=== PATIENT | female | born 1990 | race Caucasian/White ===

== ENCOUNTER 2020-06-06 19:54 | Emergency (ER) | payer MEDICAID, SELFPAY ==
[2020-06-06 20:40] VITALS: BP 165/94; PULSE 104; RESP 18; TEMP 36.6; O2SAT 99; BMI 37.5
--- NOTE | 2020-06-06 21:17 | ED_ITS ---
HPI - General Adult General Chief complaint: General Medical Stated complaint: wants rapid test Time Seen by Provider: 06/06/20 21:00 Source: patient Mode of arrival: ambulatory Limitations: no limitations History of Present Illness HPI narrative: 29-year-old female who presents the emergency department for evaluation for COVID exposure. The patient states that she has a premature child who was born at 31 weeks and has been in the NICU at [facility] for 1 month. The patient states that 10 days prior, she was exposed to a friend who now may have COVID like symptoms (loss of sense of taste and smell) that developed approximately 4 days ago. The patient has been asymptomatic however she wants to be tested for COVID-19 given her close exposure in given the fact that she does not want to spread COVID-19 to the MICU. Related Data Allergies Allergy/AdvReac Type Severity Reaction Status Date / Time No Known Allergies Allergy Unknown UNKNOWN Verified 06/06/20 20:51 [NO KNOWN ALLERGIES] seasonal allergies Allergy Unknown Cough Uncoded 06/06/20 20:51 Review of Systems Review of Systems: Yes all other systems are reviewed and are negative Neurologic: Reports Abnormal speech present [facility] Past Medical History [facility] Narrative: The patient has a history of asthma, she denies tobacco and alcohol use, she denies drug use. Medical History (Updated 06/06/20 @ 21:27 by Manuel Valera MD) Cellulitis Social History Social History Use of substances other than those prescribed or required for medical reasons: No Advance Directives: No Advance Directives Information Provided: Yes Physical Exam Vital Signs: Vital Signs: Last Vital Signs Temp 97.8 F 06/06/20 20:40 Pulse 104 H 06/06/20 20:40 Resp 18 06/06/20 20:40 BP 165/94 H 06/06/20 20:40 Pulse Ox 99 06/06/20 20:40 Body Mass Index 37.5 Const: General: cooperative and healthy appearing Nutritional Appearance: overweight Orientation/consciousness: oriented to person and oriented to place Limitations: no limitations HENMT: Head: Yes normal to inspection Ears: hearing grossly normal bilaterally General nose exam: Normal external nose present Face and sinus: Yes normal facial exam Mouth: Normal oral and palatal mucosa present Eyes: General: appearance normal, both eyes and all related structures Neck: Neck: Yes normal visual inspection Chest: Chest palpation & inspection: normal inspection of the chest Resp: Effort & Inspection: normal respiratory effort and able to speak in complete sentences Auscultation: clear to auscultation bilaterally Neuro: General: oriented to person and oriented to place Cognition (Neuro): normal cognition Speech: Abnormal speech present Gait exam (Neuro): Normal gait present Extrem: General: Yes normal to inspection Psych: Appearance: grossly normal and well kempt Mental Status: mental status grossly normal Affect: normal affect Attitude: cooperative Thought process: Normal thought process present Thought content: Normal thought content present Insight: Good insight present (Psych) Judgement: Good judgement present (Psych) Discharge Plan Discharge Clinical Impression: Close exposure to 2019 novel coronavirus Patient Disposition: Home, Self-Care Additional Instructions: Based on your symptoms and history, you were tested forCOVID-19. Your RESULT IS PENDING at this time. I will call you to night with the results. You will be contacted with either a NEGATIVE OR POSITIVE results. Please wait until we contact you for your results. Based on your evaluation today, it is okay to send you home. Please plan for self quarantine for up to 14 days. Do not expose yourself to others. You may not go to work. If testing does come back negative you may return to activities as long as you are no longer having any symptoms for at least 3 days. Please continue to wear a mask, follow cold instructions and wash your hands frequently. You may take Tylenol 325 mg pills, 2 pills every 4 hours as needed for pain or fever. You may also take ibuprofen(Motrin/Advil) 200 mg pills, 3 pills every 6 hours as needed for pain or fever. Patient seen in the emergency department should be excused from work until negative test results AND until 72 hours without any symptoms have gone away completely OR at least 10 days have passed since symptoms first appeared or since last exposure to COVID-19 positive patient CDC Guidelines for home isolation: - Stay away from others - WEAR A MASK if you are sick AND STAY HOME - Cover your mouth and nose with a tissue when you cough or sneeze. Dispose of tissues in a lined trash can and wash your hands immediately with soap and water for at least 20 seconds. If soap and water are not available, clean hands with alcohol-based hand workers compensation examiner that contains at least 60% alcohol. - Clean your hands often with soap and water for at least 20 seconds - Avoid touching your eyes, nose and mouth with unwashed hands - Do not share dishes, drinking glasses, cups, eating utensils, towels, or bedding with other people in your home. After using these items, wash them thoroughly with soap and water or put in the interactive digital media specialist. - Clean high-touch surfaces in your isolation area ( sick room and bathroom) every day; let a caregiver clean and disinfect high-touch surfaces in other areas of the home. Clean the area or item with soap and water or another detergent if it is dirty. Then, use a household disinfectant. - Limit contact with pets and animals: If you must care for a pet, wash your hands before and after interacting with them).
[2020-06-06 21:46] LABS: COVID-19 Test Negative (Negative)
== END 2020-06-06 21:38 | disposition home or self-care (01) ==
PROVIDERS: Emergency Provider Emergency Medicine Emergency Medical Services; PCP Internal Medicine
DX: Z20.822 Contact with and (suspected) exposure to COVID-19 (principal)
CPT/HCPCS: 36415; 87635; 99283; 99284

== ENCOUNTER 2020-10-29 17:46 | Emergency (ER) | payer MEDICAID, SELFPAY ==
[2020-10-29 18:41] VITALS: BP 148/86; PULSE 94; RESP 16; TEMP 36.4; O2SAT 99; BMI 45.4
[2020-10-29 19:40] LABS: IDNOW Serial# 9DD0AD1C
[2020-10-29 19:41] LABS: COVID-19 Test Positive (Negative)
--- NOTE | 2020-10-29 20:07 | ED.GENADULT ---
HPI - General Adult General Chief complaint: Headache Stated complaint: covid symptoms Time Seen by Provider: 10/29/20 20:07 History of Present Illness HPI narrative: Patient complains of mild headache body aches fatigue cough for 2-3 days, she did have a close COVID exposure with her parent and is concerned she has COVID No shortness of breath no nausea or vomiting Related Data Allergies Allergy/AdvReac Type Severity Reaction Status Date / Time No Known Allergies Allergy Unknown UNKNOWN Verified 06/06/20 20:51 [NO KNOWN ALLERGIES] seasonal allergies Allergy Unknown Cough Uncoded 06/06/20 20:51 Review of Systems Review of Systems: Positive for cough body aches fatigue and headache Negatives are no fever no chills no dizziness no weakness no fainting no feeling faint no stiff neck no sore throat no ear pain no shortness of breath no abdominal pain no nausea no vomiting no diarrhea no skin rash Yes all other systems are reviewed and are negative [facility] Past Medical History Source: nursing notes reviewed Medical History (Updated 10/29/20 @ 20:12 by POONAM Meyer) Asthma Cellulitis Social History Social History Alcohol intake: never Smoked in Last 30 Days: No Use of substances other than those prescribed or required for medical reasons: No Any prior treatment program specific to substance use: No Advance Directives: No Advance Directives Information Provided: No Patient : No Physical Exam Vital Signs: Vital Signs: Last Vital Signs Temp 97.6 F 10/29/20 18:41 Pulse 94 10/29/20 18:41 Resp 16 10/29/20 18:41 BP 148/86 H 10/29/20 18:41 Pulse Ox 99 10/29/20 18:41 Body Mass Index 45.4 General appearance is comfortable, no acute distress The eyes no discharge no redness The neck is supple The chest is clear to auscultation bilateral Heart no murmur Abdomen soft nontender Extremities full range of motion x4, no edema no calf tenderness Skin no rash Course Course Course Narrative: COVID test was positive, patient is well-appearing with no shortness of breath, vital signs are stable and she is advised to wear mask, keep a distance from people and return any time if worse Medical Decision Making Lab Data Labs: Lab Results 10/29/20 Range/Units 19:15 COVID-19 ([facility]) Positive A (Negative) COVID-19 Clin Com See Note Discharge Plan Discharge Clinical Impression: COVID-19 Patient Disposition: Home, Self-Care Additional Instructions: COVID test was positive You look well at this time, but if you develop difficulty breathing or any worse condition any time return to the ER Use Tylenol or Motrin for aches and pains Best plan is isolated as best possible for at least 10 days and at least several days after all symptoms are gone It is a good plan to get a repeat COVID test when you are feeling better to confirm the disease has resolved
== END 2020-10-29 20:25 | disposition home or self-care (01) ==
PROVIDERS: Emergency Provider Emergency Medicine; PCP Internal Medicine
DX: U07.1 COVID-19 (principal); J45.909 Unspecified asthma, uncomplicated
CPT/HCPCS: 36415; 87635; 99283; 99284

== ENCOUNTER 2021-10-17 09:08 | Emergency (ER) | payer MEDICAID, SELFPAY ==
--- NOTE | ~2021-10-17 | US_ITS ---
EXAMINATION: RIGHT LOWER EXTREMITY DEEP VENOUS ULTRASOUND CLINICAL INFORMATION: Swollen and painful calf. COMPARISON: Bilateral lower extremity DVT study 03/28/2019 TECHNIQUE: Duplex Doppler imaging with compression maneuvers were performed of the right lower extremity deep venous system. FINDINGS: The visualized common femoral, femoral and popliteal veins demonstrate normal compressibility and color flow without evidence of venous thrombosis. Visualized portions of the calf veins demonstrate normal color fill-in suggesting patency. There is no evidence of a Ho's cyst. US/US venous duplex LE RT IMPRESSION: No evidence of deep venous thrombosis involving the right lower extremity.
--- NOTE | ~2021-10-17 | XR_ITS ---
EXAMINATION: XR KNEE, RIGHT CLINICAL INFORMATION: Knee pain COMPARISON: None TECHNIQUE: Four views of the right knee. FINDINGS: No acute fracture or subluxation. Compartmental joint spaces are maintained. No joint effusion. The soft tissues are unremarkable. XR/XR knee RT 4V IMPRESSION: Normal right knee.
[2021-10-17 09:19] VITALS: BP 150/92; PULSE 103; RESP 20; TEMP 36.6; O2SAT 98; BMI 43.8
[2021-10-17] MEDS: Acetaminophen 325 MG TABLET 975 MG PO (10:39)
--- NOTE | 2021-10-17 11:52 | ED.EXTPRO ---
HPI - Extremity Problem General Chief complaint: Extremity Problem Stated complaint: R Knee swelling/pain no inj Time Seen by Provider: 10/17/21 10:09 Source: patient Mode of arrival: ambulatory Limitations: no limitations History of Present Illness HPI Narrative: 31-year-old female presents for right leg pain and swelling. States for the last 2 weeks she has had pain in her right medial knee, and it hurts to walk. States that the more she does walk, her knee swells. And becomes warm to the touch. States she has a burning sensation in her knee that radiates to the back of her knee and down her posterior calf. No rashes. Patient has a history of cellulitis in her right leg, and has been hospitalized for this. Patient states she has had right calf pain for the past 8 months. states that her right calf has always been larger than her left calf Denies chest pain, shortness of breath, fevers, nausea vomiting MD Complaint: extremity pain and extremity swelling Onset (ago): week(s) Pain Consistency: constant Location: right Quality: burning Radiation: distal Relieving factors: nothing Exacerbating factors: walking Associated symptoms: denies other symptoms Related Data Previous Rx's Medication Instructions Recorded naproxen 500 mg tablet 500 mg PO BID 10 days #20 tabs 10/17/21 prednisone 50 mg tablet 50 mg PO DAILY 5 days #5 tabs 10/17/21 Allergies Allergy/AdvReac Type Severity Reaction Status Date / Time No Known Allergies Allergy Unknown UNKNOWN Verified 06/06/20 20:51 [NO KNOWN ALLERGIES] seasonal allergies Allergy Unknown Cough Uncoded 06/06/20 20:51 Review of Systems Constitutional: Constitutional: Denies body ache(s), Denies chills, Denies fatigue, Denies fever(s), Denies malaise and Denies weakness Eyes: Eyes: Denies diplopia Cardiovascular: Cardiovascular: Denies chest pain, Denies syncope, Denies leg edema, Denies lightheadedness, Denies Loss of Consciousness, Denies palpitations and Denies dyspnea Respiratory: Respiratory: Denies chest congestion, Denies cough and Denies dyspnea Gastrointestinal: Gastrointestinal: Denies abdominal pain, Denies hematochezia, Denies constipation, Denies diarrhea and Denies vomiting Musculoskeletal: Musculoskeletal: Reports arthralgias and Reports radiating pain into limb Integumentary/Breasts: Skin/Breast: Reports swelling, Denies erythema and Denies rash Neurologic: Denies confusion, Denies syncope and Denies weakness Psychiatric: Psychiatric: Denies anxiety, Denies confusion and Denies depression Endocrine: Endocrine: Denies fatigue and Denies palpitations PMFSH Past Medical History Medical History Asthma Cellulitis Social History Social History Alcohol intake: never Advance Directives: No Advance Directives Information Provided: No Physical Exam Vital Signs: Vital Signs: Last Vital Signs Temp 98.1 F 10/17/21 13:36 Pulse 97 10/17/21 13:36 Resp 16 10/17/21 13:36 BP 148/88 H 10/17/21 13:36 Pulse Ox 99 10/17/21 13:36 O2 Del Method 10/17/21 13:36 BMI result Body Mass Index 43.8 Const: General: No confusion Nutritional Appearance: well nourished Orientation/consciousness: No confusion Limitations: no limitations Eyes: Conjunctivae: conjunctivae normal Pupils: Equal, round and reactive pupils present EOM: EOMs intact bilaterally Neck: Neck: Yes full ROM, Yes no lymphadenopathy and Yes supple Resp: Effort & Inspection: normal respiratory effort and able to speak in complete sentences Auscultation: clear to auscultation bilaterally, no crackles, no rales, no rhonchi and no wheezes Cardio: Rate: regular rate Rhythm: regular rhythm Heart sounds: S1 normal heart sound present and S2 normal heart sound present GI: Inspection: Yes normal to inspection Palpation (GI): Soft to palpation, nontender, no guarding and not rigid Percussion: Yes normal to percussion Auscultation: normal bowel sounds Skin: General skin exam: no rashes or lesions noted Neuro: General: No confusion Cranial nerves: Yes Equal, round and reactive pupils present Extrem: Right lower extremity: full ROM, normal capillary refill, edema Details: non-pitting and 2+, knee Details: normal to inspection, tenderness Location: of the medial joint line, normal ROM and knee ligament exam normal; no swelling, no deformity and no unusual warmth, lower leg Details: no edema; no tenderness, no localized swelling, no ecchymosis and no unusual warmth and foot Details: normal capillary refill and edema; no tenderness and no crepitus Psych: Appearance: grossly normal Affect: normal affect Attitude: cooperative Thought process: Normal thought process present Course Course Course Narrative: 31-year-old female with chronic right leg swelling presents for 2 weeks of worsening right knee and calf pain. On exam, patient has intact right lower extremity pulses, sensation, range of motion, motor strength, and deep tendon reflexes. Patient has no ligamentous laxity. Patient is tender to palpate on the medial joint line of her right knee. Right calf has no erythema or tenderness, however is larger than left calf. This is not a cellulitis, there is no DVT, x-ray is negative for fracture, no effusion noted. Provided crutches, knee immobilizer, follow up with Orthopedics, counseled to rest, ice, compression, elevation, prescribed naproxen and prednisone. Gave return precautions. Patient verbalized agreement understanding of the plan knee XR FINDINGS: No acute fracture or subluxation. Compartmental joint spaces are maintained. No joint effusion. The soft tissues are unremarkable.? XR/XR knee RT 4V IMPRESSION: Normal right knee. US FINDINGS: The visualized common femoral, femoral and popliteal veins demonstrate normal compressibility and color flow without evidence of venous thrombosis. ? Visualized portions of the calf veins demonstrate normal color fill-in suggesting patency. There is no evidence of a Ho's cyst. US/US venous duplex LE RT IMPRESSION: No evidence of deep venous thrombosis involving the right lower extremity. Discharge Plan Discharge Clinical Impression: Acute pain of right knee Patient Disposition: Home, Self-Care Instructions: Crutch Instructions (ED), R.I.C.E. Treatment (ED), Knee Immobilizer (ED) Additional Instructions: I have referred you to orthopedics. Please call them at the following phone number [phone], if you do not hear from them by the end of the day. Please use your knee immobilizer and crutches, please take the prednisone and naproxen I have prescribed. Please rest, ice, elevate your knee. Please return to emergency room for any new or concerning symptoms Prescriptions: New naproxen 500 mg tablet 500 mg PO BID 10 Days Qty: 20 0RF prednisone 50 mg tablet 50 mg PO DAILY 5 Days Qty: 5 0RF Referrals: Christopher Gottlieb MD [Physician] - Interventions: ED Discharge Assessment Last Done: 10/17/21 13:35 Discharge Date/Time: 10/17/21 13:36
[2021-10-17 13:36] VITALS: BP 148/88; PULSE 97; RESP 16; TEMP 36.7; O2SAT 99
== END 2021-10-17 13:36 | disposition home or self-care (01) ==
PROVIDERS: Emergency Provider Emergency Medicine; PCP Internal Medicine
DX: M25.561 Pain in right knee (principal); R60.0 Localized edema
CPT/HCPCS: 73564; 93971; 99284

== ENCOUNTER 2021-10-21 05:49 | Emergency (ER) | payer MEDICAID, SELFPAY ==
[2021-10-21 06:02] VITALS: BP 137/81; PULSE 94; RESP 18; TEMP 36.9; O2SAT 98; BMI 43.8
[2021-10-21] MEDS: diphenhydrAMINE HCL 25 MG TABLET 50 MG PO (06:18)
--- NOTE | 2021-10-21 06:26 | ED.ALLEREA ---
HPI - Allergic Reaction General Chief complaint: Allergic Reaction Stated complaint: Allergic Reaction Time Seen by Provider: 10/21/21 06:23 History of Present Illness HPI narrative: Patient is 31 years old presents today with having diffuse body rash ongoing for last 3 days. There has been no change in environment. No new detergent. No new clothing. No new soap. No new environment no new pets. Patient from home. Extremely itchy. No shortness of breath. Positive rash with irregular border raise. Related Data Previous Rx's Medication Instructions Recorded naproxen 500 mg tablet 500 mg PO BID 10 days #20 tabs 10/17/21 prednisone 50 mg tablet 50 mg PO DAILY 5 days #5 tabs 10/17/21 diphenhydramine HCl 25 mg capsule 25 mg PO Q8H 5 days #15 caps 10/21/21 (Benadryl) epinephrine 0.3 mg/0.3 mL 0.3 mg (0.3 mL) IM ONCE PRN 10/21/21 injection, auto-injector (EpiPen) extreme reaction #1 ea famotidine 20 mg tablet (Pepcid) 20 mg PO BID 5 days #10 tabs 10/21/21 prednisone 20 mg tablet 40 mg PO DAILY #10 tabs 10/21/21 Allergies Allergy/AdvReac Type Severity Reaction Status Date / Time No Known Allergies Allergy Unknown UNKNOWN Verified 06/06/20 20:51 [NO KNOWN ALLERGIES] seasonal allergies Allergy Unknown Cough Uncoded 06/06/20 20:51 Review of Systems Review of Systems: Positive diffuse itch No chest pain or shortness of breath no diaphoresis Yes all other systems are reviewed and are negative PMFSH Past Medical History Attestation statement: The following information was validated with the patient. Medical History Asthma Cellulitis Social History Social History Alcohol intake: never Advance Directives: No Physical Exam ED Vital Signs: Vital Signs - 24 hr 10/21/21 06:02 Temperature 98.4 F Pulse Rate 94 Respiratory Rate 18 Blood Pressure 137/81 Pulse Oximetry 98 Oxygen Delivery Method Room Air BMI result Body Mass Index 43.8 Appearance: Alert. Oriented X3. No acute distress. Eyes: Pupils equal, round and reactive to light. ENT: Pharynx normal. Neck: Normal inspection. Neck supple. No lymph nodes noted. No crepitus CVS: Normal heart rate and rhythm. Pulses normal. Normal S1 and S2 Respiratory: No respiratory distress. Breath sounds normal. No Wheezing. No rales Abdomen: Soft and nontender. No rigidity. No distention. good BS x4 Skin: Diffuse urticaria no mucosal membrane involvement. Extremities: No lower extremity edema. Neurovascular intact to all extremities. No Lacerations. No Rash Neuro: Oriented X 3. No motor deficit. No sensory deficit. Moving all extermities. No slurred speech MDM - Allergic Reaction MDM Narrative Medical decision making narrative: Positive allergic reaction. Lungs are clear well appearing. Patient is started on prednisone. Given Pepcid and Benadryl. Will discharge patient home. O2 sat is normal. There has been no change in patient's environment. Currently in stable condition. Medical Records Attestation: I reviewed the patient's medical records. Lab Data Attestation: I reviewed the patient's lab results. Discharge Plan Discharge Clinical Impression: Allergic reaction Patient Disposition: Home, Self-Care Instructions: General Allergic Reaction (ED) Prescriptions: New prednisone 20 mg tablet 40 mg PO DAILY Qty: 10 0RF famotidine [Pepcid] 20 mg tablet 20 mg PO BID 5 Days Qty: 10 0RF diphenhydramine HCl [Benadryl] 25 mg capsule 25 mg PO Q8H 5 Days Qty: 15 0RF epinephrine [EpiPen] 0.3 mg/0.3 mL auto-injector 0.3 mg IM ONCE PRN (Reason: extreme reaction) Qty: 1 0RF Rx Instructions: for 2 doses No Action naproxen 500 mg tablet 500 mg PO BID 10 Days Qty: 20 0RF prednisone 50 mg tablet 50 mg PO DAILY 5 Days Qty: 5 0RF Referrals: Physician,Unknown J [Primary Care Provider] -
[2021-10-21] MEDS: Famotidine 20 MG TABLET PO (06:31)
[2021-10-21] MEDS: predniSONE 20 MG TABLET 60 MG PO (06:31)
== END 2021-10-21 06:43 | disposition home or self-care (01) ==
PROVIDERS: Emergency Provider Emergency Medicine Emergency Medical Services
DX: T78.40XA Allergy, unspecified, initial encounter (principal); X58.XXXA Exposure to other specified factors, initial encounter; J45.909 Unspecified asthma, uncomplicated
CPT/HCPCS: 99283; 99284; Q0163

== ENCOUNTER 2022-02-06 17:39 | Emergency (ER) | payer MEDICAID, SELFPAY ==
--- NOTE | ~2022-02-06 | XR_ITS ---
EXAMINATION: XR CHEST CLINICAL INFORMATION: Chest pain COMPARISON: Chest x-ray 07/15/2019 TECHNIQUE: 2 views of the chest were obtained. FINDINGS: No significant abnormality is noted involving the heart, lungs, mediastinum, bony thorax or soft tissues. XR/XR chest 2V IMPRESSION: Unremarkable examination.
[2022-02-06 17:53] VITALS: BP 177/91; PULSE 107; RESP 20; TEMP 36.9; O2SAT 99; BMI 45.4
--- NOTE | 2022-02-06 17:56 | ECG_ITS ---
Test Reason : CHEST PAIN Blood Pressure : / mmHG Vent. Rate : 084 BPM Atrial Rate : 084 BPM P-R Int : 150 ms QRS Dur : 080 ms QT Int : 366 ms P-R-T Axes : 016 -13 -05 degrees QTc Int : 432 ms Normal sinus rhythm Minimal voltage criteria for LVH, may be normal variant ( R in aVL ) Borderline ECG When compared with ECG of 26-MAR-2019 13:20, No significant change was found Referred By: Generic ED Physician Electronically Signed By:BERE ROSSI
[2022-02-06 18:32] LABS: MANUAL DIFF FLAG NO
[2022-02-06 18:57] LABS: HCG Quantitative < 2 mIU/mL; Troponin-I High Sensitivity < 3.5 ng/L (<3.5-17.0)
[2022-02-06 18:58] LABS: Alanine Aminotransferase 28 U/L (0-31); Albumin Level 3.7 g/dL (3.5-5.0); Alkaline Phosphatase 92 U/L (39-117); Anion Gap 14 (12-20); Aspartate Amino Transferase 19 U/L (5-31); Bilirubin Total < 0.2 mg/dL (0.0-1.0); Blood Urea Nitrogen 11 mg/dL (9-16); Calcium 8.4 mg/dL (8.4-10.2); Carbon Dioxide 22 mmol/L (22-29); Chloride 109 mmol/L (96-108); Creatinine Clr Calc Pharmacy 178.9; Estimated Glomerular Filt Rate > 60; Glucose Random 135 mg/dL (60-115); Potassium 4.1 mmol/L (3.3-5.1); Sodium 141 mmol/L (135-145); Total Protein 6.4 g/dL (6.5-8.0)
[2022-02-06 19:03] LABS: Basophils Percent Auto 0.3 % (0-2); Eosinophils Absolute Auto 0.2 X10*3/uL (0.0-0.4); Eosinophils Percent Auto 2.1 % (0-4); Hematocrit 35.2 % (37.0-47.0); Hemoglobin 10.8 g/dl (12.0-16.0); Imm Gran Abs Auto 0.09 X10*3/uL (0.00-0.03); Imm Gran Pct Auto 1.2 % (0.0-0.4); Lymphocytes Absolute Auto 2.2 X10*3/uL (1.2-4.9); Lymphocytes Percent Auto 29.1 % (20-40); Mean Corpuscular HGB Conc 30.7 g/dl (31.0-35.0); Mean Corpuscular Hemoglobin 22.7 pg (27.0-33.0); Mean Corpuscular Volume 74.1 fL (80.0-98.0); Mean Platelet Volume 11.6 fL (9.4-12.3); Monocytes Absolute Auto 0.4 X10*3/uL (0.1-1.2); Monocytes Percent Auto 5.3 % (2-11); Neutrophils Absolute Auto 4.8 x10*3/uL (2.0-8.3); Platelet Count 214 X10*3/uL (160-400); Red Blood Count 4.75 X10*6/uL (4.20-5.50); Red Cell Distribution Width 18.2 % (11.0-16.0); White Blood Count 7.7 X10*3/uL (4.8-10.8)
== END 2022-02-07 02:05 | disposition left against medical advice (07) ==
PROVIDERS: Emergency Provider Emergency Medicine; PCP Internal Medicine
DX: R07.89 Other chest pain (principal); R20.2 Paresthesia of skin; R06.02 Shortness of breath; F41.9 Anxiety disorder, unspecified
CPT/HCPCS: 36415; 71046; 80053; 84484; 84702; 85025; 93005; 99283

== ENCOUNTER 2022-02-07 10:27 | Emergency (ER) | payer MEDICAID, SELFPAY ==
[2022-02-07 10:48] VITALS: BP 157/85; PULSE 100; RESP 18; TEMP 36.3; O2SAT 100; BMI 45.4
[2022-02-07 11:36] LABS: Troponin-I High Sensitivity < 3.5 ng/L (<3.5-17.0)
== END 2022-02-07 16:47 | disposition left against medical advice (07) ==
PROVIDERS: Emergency Provider Emergency Medicine; PCP Internal Medicine
DX: R07.9 Chest pain, unspecified (principal); R06.02 Shortness of breath; R20.0 Anesthesia of skin
CPT/HCPCS: 36415; 84484; 99281; 99283

== ENCOUNTER 2023-12-31 15:04 | Emergency (ER) | payer OTHER, SELFPAY ==
[2023-12-31 15:16] VITALS: BP 140/92; PULSE 90; RESP 18; TEMP 36.9; O2SAT 99; BMI 35.8
--- NOTE | 2023-12-31 15:16 | ED_ITS ---
HPI - General Adult General Stated complaint: ref by PCP for severe headache x2 wks Related Data Previous Rx's ?Medication ?Instructions ?Recorded naproxen 500 mg tablet 500 mg PO BID 10 days #20 tabs 10/17/21 prednisone 50 mg tablet 50 mg PO DAILY 5 days #5 tabs 10/17/21 diphenhydramine HCl 25 mg capsule 25 mg PO Q8H 5 days #15 caps 10/21/21 (Benadryl) epinephrine 0.3 mg/0.3 mL 0.3 mg (0.3 mL) IM ONCE PRN 10/21/21 injection, auto-injector (EpiPen) extreme reaction #1 ea famotidine 20 mg tablet (Pepcid) 20 mg PO BID 5 days #10 tabs 10/21/21 prednisone 20 mg tablet 40 mg (2 x 20 mg) PO DAILY #10 tabs 10/21/21 Allergies Allergy/AdvReac Type Severity Reaction Status Date / Time No Known Allergies Allergy Unknown UNKNOWN Verified 06/06/20 20:51 [NO KNOWN ALLERGIES] seasonal allergies Allergy Unknown Cough Uncoded 06/06/20 20:51 [facility] Past Medical History Medical History Asthma Cellulitis Social History Social History Alcohol intake: never Course Course Course Narrative: RME, this is a rapid medical exam performed by Enzo Parra please refer to primary provider for complete H&P- 33 year old female presents for evaluation of a generalized headache that started last week. She denies any history of migraines. No relief from Ibuprofen, Tylenol and Excedrin migraine. She called her doctor and was sent in for a CT brain. Neuros intact Discharge Plan Discharge Prescriptions: No Action naproxen 500 mg tablet 500 mg PO BID 10 Days Qty: 20 0RF prednisone 50 mg tablet 50 mg PO DAILY 5 Days Qty: 5 0RF prednisone 20 mg tablet 40 mg PO DAILY Qty: 10 0RF famotidine [Pepcid] 20 mg tablet 20 mg PO BID 5 Days Qty: 10 0RF diphenhydramine HCl [Benadryl] 25 mg capsule 25 mg PO Q8H 5 Days Qty: 15 0RF epinephrine [EpiPen] 0.3 mg/0.3 mL auto-injector 0.3 mg IM ONCE PRN (Reason: extreme reaction) Qty: 1 0RF Rx Instructions: for 2 doses Print Language: Maltese
--- NOTE | 2023-12-31 18:57 | PC.NURSE ---
Left prior to change opf shift
== END 2023-12-31 18:57 | disposition left against medical advice (07) ==
PROVIDERS: Emergency Provider Emergency Medicine; PCP Internal Medicine
DX: R51.9 Headache, unspecified (principal); Z53.21 Procedure and treatment not carried out due to patient leaving prior to being seen by health care provider
CPT/HCPCS: 99281

== ENCOUNTER 2024-12-16 18:46 | Emergency (ER) | payer OTHER, SELFPAY ==
[2024-12-16 19:03] VITALS: BP 186/129; PULSE 95; RESP 18; TEMP 36.8; O2SAT 98; BMI 32.9
--- NOTE | 2024-12-16 19:05 | ED.GENADULT ---
HPI - General Adult General Chief complaint: Abdominal Pain Stated complaint: abd pain radiating to back Related Data Previous Rx's ?Medication ?Instructions ?Recorded naproxen 500 mg tablet 500 mg PO BID 10 days #20 tabs 10/17/21 prednisone 50 mg tablet 50 mg PO DAILY 5 days #5 tabs 10/17/21 diphenhydramine HCl 25 mg capsule 25 mg PO Q8H 5 days #15 caps 10/21/21 (Benadryl) epinephrine 0.3 mg/0.3 mL 0.3 mg (0.3 mL) IM ONCE PRN 10/21/21 injection, auto-injector (EpiPen) extreme reaction #1 ea famotidine 20 mg tablet (Pepcid) 20 mg PO BID 5 days #10 tabs 10/21/21 prednisone 20 mg tablet 40 mg (2 x 20 mg) PO DAILY #10 tabs 10/21/21 ondansetron 4 mg disintegrating 4 mg PO Q6-8H PRN nausea and 12/17/24 tablet vomiting #7 tabs oxycodone 5 mg tablet 5 mg PO Q6H PRN pain #20 tabs 12/17/24 Allergies Allergy/AdvReac Type Severity Reaction Status Date / Time No Known Allergies (NO KNOWN Allergy Unknown UNKNOWN Verified 12/17/24 13:35 ALLERGIES) seasonal allergies Allergy Unknown Cough Uncoded 12/16/24 19:04 [facility] Past Medical History Medical History Asthma Cellulitis Social History Social History Alcohol intake: never Physical Exam ED Vital Signs: BMI result Body Mass Index 32.9 Course Course Course Narrative: This is a rapid medical exam performed by Isai Garza NP: Additional HPI, ROS, PE not included below will be deferred to primary provider. Patient is a 34-year-old female with history of bariatric surgery at [facility] 3 years ago presenting to the ED with complaint of severe epigastric pain radiating through to back for the past 1.5 hours. Nausea and vomiting. Plan: labs Patient left the emergency department before myself or any of the other clinicians could review or explain physical exam findings, test results, need or lack there of for additional testing, treatment options, or a treatment plan. Discharge Plan Discharge Clinical Impression: Abdominal pain Patient Disposition: Left W/O Completing Treatment Prescriptions: No Action naproxen 500 mg tablet 500 mg PO BID 10 Days Qty: 20 0RF prednisone 50 mg tablet 50 mg PO DAILY 5 Days Qty: 5 0RF prednisone 20 mg tablet 40 mg PO DAILY Qty: 10 0RF famotidine [Pepcid] 20 mg tablet 20 mg PO BID 5 Days Qty: 10 0RF diphenhydramine HCl [Benadryl] 25 mg capsule 25 mg PO Q8H 5 Days Qty: 15 0RF epinephrine [EpiPen] 0.3 mg/0.3 mL auto-injector 0.3 mg IM ONCE PRN (Reason: extreme reaction) Qty: 1 0RF Rx Instructions: for 2 doses ondansetron 4 mg tablet,disintegrating 4 mg PO Q6-8H PRN (Reason: nausea and vomiting) Qty: 7 0RF oxycodone 5 mg tablet 5 mg PO Q6H PRN (Reason: pain) Qty: 20 0RF Rx Instructions: Partial Fill upon patient request. Discharge Date/Time: 12/16/24 20:25
== END 2024-12-16 20:25 | disposition left against medical advice (07) ==
LOC: HO.ED 20:23
PROVIDERS: Emergency Provider Emergency Medicine
DX: R10.13 Epigastric pain (principal); Z53.21 Procedure and treatment not carried out due to patient leaving prior to being seen by health care provider
CPT/HCPCS: 99281

== ENCOUNTER 2024-12-17 13:26 | Emergency (ER) | payer OTHER, SELFPAY ==
--- NOTE | ~2024-12-17 | CT_ITS ---
CLINICAL HISTORY: Gallstone pancreatitis?? CT abdomen and pelvis with contrast Comparison: None provided Findings: Lung bases are clear. No acute bony abnormalities. Liver and spleen within normal limits. Pancreas and adrenal glands unremarkable. Gallbladder is within normal limits. No significant focal renal abnormalities. No renal stones or hydronephrosis. Abdominal aorta is normal in caliber. No free fluid or adenopathy in the pelvis. No diverticulitis. Appendix unremarkable. Uterus normal size. No left adnexal abnormality. 2 cm right ovarian cyst minimal adnexal fluid. Impression: No acute process This document has been electronically signed by: Irving Howell MD on 12/17/2024 23:17:34
--- NOTE | ~2024-12-17 | US_ITS ---
EXAMINATION: US ABDOMEN LIMITED CLINICAL INFORMATION: Right upper quadrant pain.. COMPARISON: None available. TECHNIQUE: Real-time imaging of the gallbladder, liver, and bile ducts.. FINDINGS: LIVER: The liver is normal in size. Right hepatic lobe measures 14.9 cm. The liver contour is normal. Diffusely increased parenchymal echogenicity is present. No focal hepatic lesion. There is no intrahepatic biliary duct dilatation seen. GALLBLADDER: Gallbladder demonstrates what appears to be a wall echo shadow sign, suggesting it is filled with gallstones. No wall thickening or pericholecystic fluid. Negative sonographic Mullins's sign. COMMON BILE DUCT: Normal in caliber measuring 0.5 cm in diameter. FREE FLUID: None. US/US abdomen limited IMPRESSION: 1. Gallbladder demonstrating numerous intraluminal gallstones without evidence of gallbladder inflammation. 2. No biliary dilatation. 3. Diffusely increased echogenicity to the liver suggesting steatosis. No suspicious focal hepatic abnormality. Electronically signed by: Paco White MD 12/17/2024 04:22 PM EDT
[2024-12-17 13:32] VITALS: BP 136/69; PULSE 105; RESP 16; TEMP 36.4; O2SAT 98; BMI 36.2
--- NOTE | 2024-12-17 13:35 | ED_ITS ---
HPI - General Adult General Chief complaint: Abdominal Pain Stated complaint: Abdominal Pain Time Seen by Provider: 12/17/24 19:20 Source: patient Mode of arrival: ambulatory Limitations: no limitations History of Present Illness ED Provider: HPI narrative: Patient is complaining of pain in right upper quadrant epigastric area radiating to the back since yesterday afternoon associated with nausea and vomiting multiple times patient never had similar pain in the past no fever no chills no urinary symptoms no history of kidney stone or gallstones Related Data Previous Rx's ?Medication ?Instructions ?Recorded naproxen 500 mg tablet 500 mg PO BID 10 days #20 ta bs 10/17/21 prednisone 50 mg tablet 50 mg PO DAILY 5 days #5 tab s 10/17/21 diphenhydramine HCl 25 mg capsule 25 mg PO Q8H 5 days #15 caps 10/21/21 (Benadryl) epinephrine 0.3 mg/0.3 mL 0.3 mg (0.3 mL) IM ONCE PRN 10/21/21 injection, auto-injector (EpiPen) extreme reaction #1 ea famotidine 20 mg tablet (Pepcid) 20 mg PO BID 5 days # 10 tabs 10/21/21 prednisone 20 mg tablet 40 mg (2 x 20 mg) PO DAILY # 10 tabs 10/21/21 ondansetron 4 mg disintegrating 4 mg PO Q6-8H PRN naus ea and 12/17/24 tablet vomiting #7 tabs oxycodone 5 mg tablet 5 mg PO Q6H PRN pain #20 tab s 12/17/24 Allergies Allergy/AdvReac Type Severity Reaction Status Date / Time No Known Allergies (NO KNOWN Allergy Unknown UNKNOWN Verified 12/17/24 13:35 ALLERGIES) seasonal allergies Allergy Unknown Cough Uncoded 12/16/24 19:04 Review of Systems 2 Review of Systems: Yes all other systems are reviewed and are negative PMFSH Past Medical History Medical History Asthma Cellulitis Social History Social History Alcohol intake: never Smoked in Last 30 Days: No Use of substances other than those prescribed or required for medical reasons: No Advance Directives: No Advance Directives Information Provided: No Physical Exam ED Vital Signs: Vital Signs - 24 hr 12/17/24 13:32 12/17/24 19:07 12/17/24 21:15 Temperature 97.5 F 96.8 F Pulse Rate 105 H 62 69 Respiratory Rate 16 20 16 Blood Pressure 136/69 124/72 118/70 Pulse Oximetry 98 99 99 Oxygen Delivery Method Room Air Room Air Room Air 12/17/24 23:25 12/17/24 23:55 Temperature 98.0 F 98.0 F Pulse Rate 75 75 Respiratory Rate 14 14 Blood Pressure 107/71 107/71 Pulse Oximetry 100 100 Oxygen Delivery Method Room Air Room Air BMI result Body Mass Index 36.2 Appearance: Alert. Oriented X3. No acute distress. Eyes: PERRLA, No Nystagmus ENT: Pharynx normal. Oral Mucosa moist Neck: Normal inspection. Neck supple. CVS: Normal heart rate and rhythm. Pulses normal. Respiratory: No respiratory distress. Equal air entry bilateral, no wheezing/rales/rhonchi Abdomen: Soft and tenderness right upper quadrant with guarding no rebound tenderness. Bowel sounds are present, no mass palpable, no CVA tenderness Skin: Skin warm and dry. Normal skin color. Normal skin turgor. Extremities: No lower extremity edema. No calf tenderness Neuro: Oriented X 3. No motor deficit. No sensory deficit.No cerebellar signs , cranial nerves II-XII intact Course Course Course Narrative: RME performed by Holly Vergara PA-C. Patient is a 34 year old assigned female at presenting to the emergency department with right upper quadrant abdominal pain that goes into the back with nausea and vomiting. Detailed physical exam and review of systems are deferred to the shoe repairer apprentice. Labs, imaging, and swabs ordered. Patient placed back in the waiting room pending room availability and results. Medications Administered Discontinued Medications Generic Name Dose Route Start Last Admin Trade Name Freq PRN Reason Stop Dose Admin Sodium Chloride 1,000 mls @ 999 mls/hr 12/17/24 20:50 12/17/24 21:14 Ns IV 12/17/24 21:50 999 mls/hr .Q1H1M ONE Administration Iohexol 100 ml 12/17/24 22:32 12/17/24 22:35 Iohexol 350 Mg/Ml 100 Ml Infus..Btl IV 12/17/24 22:33 100 ml ONCE ONE Administration Morphine Sulfate 4 mg 12/17/24 20:50 12/17/24 21:14 Morphine Sulfate 4 Mg/Ml Cartridge IVPUSH 12/17/24 20:51 4 mg ONCE ONE Administration Protocol Ondansetron HCl 4 mg 12/17/24 20:50 12/17/24 21:14 Ondansetron Odt 4 Mg Tab.Rapdis TRANSLINGU 12/17/24 20:51 4 mg ONCE ONE Administration Medical Decision Making Medical Decision Making [facility] Narrative: Patient with cholelithiasis without any signs of cholecystitis elevated pancreatic enzyme without any CTA evidence of pancreatitis patient's feeling much better after pain medication eating food in the ER advised to follow up with surgeon as outpatient for cholecystectomy Differential Diagnosis Differential Diagnoses: The differential diagnosis associated with the presentation includes Gallstones/kidney stone/gastritis/UTI Admission/Observation Consideration of admission/observation: Escalation of care including admission/observation considered Lab Data [facility] Lab Attestation statement: I reviewed the patient's lab results. 12/17/24 13:45 12/17/24 13:45 Labs: Lab Results 12/17/24 12/17/24 Range/Units 13:45 19:59 WBC 9.7 (4.8-10.8) X10*3/uL RBC 4.71 (4.20-5.50) X10*6/uL Hgb 11.8 L (12.0-16.0) g/dl Hct 36.7 L (37.0-47.0) % MCV 77.9 L (80.0-98.0) fL MCH 25.1 L (27.0-33.0) pg MCHC 32.2 (31.0-35.0) g/dl RDW 14.5 (11.0-16.0) % Plt Count 192 (160-400) X10*3/uL MPV 11.2 (9.4-12.3) fL Immature Gran % (Auto) 0.3 (0.0-0.4) % Neut % (Auto) 65.1 (45-73) % Lymph % (Auto) 26.9 (20-40) % Brown % (Auto) 6.3 (2-11) % Eos % (Auto) 1.0 (0-4) % Baso % (Auto) 0.4 (0-2) % Lymph # (Auto) 2.6 (1.2-4.9) X10*3/uL Brown # (Auto) 0.6 (0.1-1.2) X10*3/uL Eos # (Auto) 0.1 (0.0-0.4) X10*3/uL Baso # (Auto) 0.0 (0.0-0.2) X10*3/uL Abs Immat Gran (auto) 0.03 (0.00-0.03) X10*3/uL Absolute Neuts (auto) 6.3 (2.0-8.3) x10*3/uL Absolute Nucleated RBC 0.000 (0.0-0.012) X10*3/uL Nucleated RBC % (auto) 0.0 (0.0-0.2) /100WBC Sodium 139 (135-145) mmol/L Potassium 3.3 (3.3-5.1) mmol/L Chloride 108 (96-108) mmol/L Carbon Dioxide 23 (22-29) mmol/L Anion Gap 11 L (12-20) BUN 14 (9-16) mg/dL Creatinine 0.83 (0.5-1.4) mg/dL Estim Creat Clear Calc 120.1 Estimated GFR > 60 Random Glucose 96 (60-115) mg/dL Calcium 8.9 (8.4-10.2) mg/dL Magnesium 2.1 (1.6-2.6) mg/dL Total Bilirubin 0.3 (0.0-1.0) mg/dL AST 37 H (5-31) U/L ALT 46 H (0-31) U/L Alkaline Phosphatase 75 (39-117) U/L Total Protein 7.2 (6.5-8.0) g/dL Albumin 4.2 (3.5-5.0) g/dL Lipase 143 H (8-78) U/L Beta HCG, Quant < 2 mIU/mL Urine Color Yellow Urine Appearance Clear Urine pH 6.5 (5.0-9.0) Ur Specific [place] 1.020 (1.005-1.025) Urine Protein Negative (Neg-Trace) mg/dL Urine Glucose (UA) Negative (Negative) mg/dL Urine Ketones Negative (Negative) mg/dL Urine Blood Negative (Negative) Urine Nitrite Negative (Negative) Ur Leukocyte Esterase Trace H (Negative) Urine RBC 0-2 (0-2) /HPF Urine WBC 0-5 (0-5) /HPF Ur Squamous Epith Cells 11-20 (0-2) /HPF Urine Bacteria 4+ (None Seen) Hyaline Casts 0-2 (0-2) /LPF Influenza Type A (PCR) NEGATIVE (Negative) Influenza Type B (PCR) NEGATIVE (Negative) RSV RNA Qual (PCR) NEGATIVE (Negative) SARS-CoV-2 RNA (RT-PCR) NEGATIVE (Negative) Radiology Impression Discussion of test interpretation with radiology: I have reviewed the radiologist's reading. Radiologist Impression: US/US abdomen limited IMPRESSION: 1. Gallbladder demonstrating numerous intraluminal gallstones without evidence of gallbladder inflammation. 2. No biliary dilatation. 3. Diffusely increased echogenicity to the liver suggesting steatosis. No suspicious focal hepatic abnormality. Ordering Physician: Wilberto Solano MD Date of Service: 12/17/24 Procedure(s): CT abdomen pelvis w IV con Accession Number(s): [id number] cc: Physician,Unknown ; Wilberto Solano MD~ Report Number: [id number]: Total DLP = 746.00 mGy-cm CLINICAL HISTORY: Gallstone pancreatitis?? CT abdomen and pelvis with contrast Comparison: None provided Findings: Lung bases are clear. No acute bony abnormalities. Liver and spleen within normal limits. Pancreas and adrenal glands unremarkable. Gallbladder is within normal limits. No significant focal renal abnormalities. No renal stones or hydronephrosis. Abdominal aorta is normal in caliber. No free fluid or adenopathy in the pelvis. No diverticulitis. Appendix unremarkable. Uterus normal size. No left adnexal abnormality. 2 cm right ovarian cyst minimal adnexal fluid. Impression: No acute process This document has been electronically signed by: Irving Howell MD on 12/17/2024 23:17:34 Discharge Plan Discharge Clinical Impression: Cholelithiasis Patient Disposition: Home, Self-Care Instructions: Gallstones (ED) Additional Instructions: Avoid fried foods Follow up with surgeon Report to the ER if worsening of the pain Prescriptions: New ondansetron 4 mg tablet,disintegrating 4 mg PO Q6-8H PRN (Reason: nausea and vomiting) Qty: 7 0RF oxycodone 5 mg tablet 5 mg PO Q6H PRN (Reason: pain) Qty: 20 0RF Rx Instructions: Partial Fill upon patient request. No Action naproxen 500 mg tablet 500 mg PO BID 10 Days Qty: 20 0RF prednisone 50 mg tablet 50 mg PO DAILY 5 Days Qty: 5 0RF prednisone 20 mg tablet 40 mg PO DAILY Qty: 10 0RF famotidine [Pepcid] 20 mg tablet 20 mg PO BID 5 Days Qty: 10 0RF diphenhydramine HCl [Benadryl] 25 mg capsule 25 mg PO Q8H 5 Days Qty: 15 0RF epinephrine [EpiPen] 0.3 mg/0.3 mL auto-injector 0.3 mg IM ONCE PRN (Reason: extreme reaction) Qty: 1 0RF Rx Instructions: for 2 doses Referrals: Sukh Kim MD [Physician, General Surgery] Referral Note: Cholelithiasis Interventions: ED Discharge Assessment Last Done: 12/17/24 23:55 Discharge Date/Time: 12/17/24 23:55 Print Language: Angolan
[2024-12-17 13:49] LABS: MANUAL DIFF FLAG NO
[2024-12-17 14:06] LABS: Hematocrit 36.7 % (37.0-47.0); Hemoglobin 11.8 g/dl (12.0-16.0); Imm Gran Abs Auto 0.03 X10*3/uL (0.00-0.03); Imm Gran Pct Auto 0.3 % (0.0-0.4); Lymphocytes Absolute Auto 2.6 X10*3/uL (1.2-4.9); Mean Corpuscular HGB Conc 32.2 g/dl (31.0-35.0); Mean Corpuscular Hemoglobin 25.1 pg (27.0-33.0); Mean Corpuscular Volume 77.9 fL (80.0-98.0); NRBC Abs Auto 0.000 X10*3/uL (0.0-0.012); NRBC Pct Auto 0.0 /100WBC (0.0-0.2); Platelet Count 192 X10*3/uL (160-400); Red Blood Count 4.71 X10*6/uL (4.20-5.50); White Blood Count 9.7 X10*3/uL (4.8-10.8)
[2024-12-17 14:13] LABS: Alanine Aminotransferase 46 U/L (0-31); Albumin Level 4.2 g/dL (3.5-5.0); Alkaline Phosphatase 75 U/L (39-117); Anion Gap 11 (12-20); Aspartate Amino Transferase 37 U/L (5-31); Blood Urea Nitrogen 14 mg/dL (9-16); Calcium 8.9 mg/dL (8.4-10.2); Carbon Dioxide 23 mmol/L (22-29); Chloride 108 mmol/L (96-108); Creatinine Clr Calc Pharmacy 120.1; Estimated Glomerular Filt Rate > 60; Lipase 143 U/L (8-78); Magnesium 2.1 mg/dL (1.6-2.6); Potassium 3.3 mmol/L (3.3-5.1); Sodium 139 mmol/L (135-145); Total Protein 7.2 g/dL (6.5-8.0)
[2024-12-17 15:13] LABS: Resp Syncy Virus RNA Qual PCR NEGATIVE (Negative); SARS COV2 PCR INHOUSE NEGATIVE (Negative)
[2024-12-17 19:07] VITALS: BP 124/72; PULSE 62; RESP 20; TEMP 36; O2SAT 99
[2024-12-17 20:06] LABS: Appearance Urine Clear; Glucose Urine UA Negative (Negative); PH 6.5 (5.0-9.0); Specific Gravity - Urine 1.020 (1.005-1.025); UMIC TRIGGER UACC YES
[2024-12-17 21:15] VITALS: BP 118/70; PULSE 69; RESP 16; O2SAT 99
[2024-12-17] MEDS: iohexoL 350 MG/ML 100 ML INFUS..BTL IV (22:35)
[2024-12-17 23:25] VITALS: BP 107/71; PULSE 75; RESP 14; TEMP 36.7; O2SAT 100
[2024-12-17 23:55] VITALS: BP 107/71; PULSE 75; RESP 14; TEMP 36.7; O2SAT 100
== END 2024-12-17 23:55 | disposition home or self-care (01) ==
PROVIDERS: Physician Assistant Medical; Emergency Provider Internal Medicine
DX: K80.20 Calculus of gallbladder without cholecystitis without obstruction (principal); R10.11 Right upper quadrant pain; R11.2 Nausea with vomiting, unspecified
CPT/HCPCS: 74177; 76705; 80053; 81001; 83690; 83735; 84702; 85025; 87637; 96374; 99284; J2270; Q9967

== ENCOUNTER → 2024-12-17 13:36 | Outpatient (BNV) | payer OTHER, SELFPAY | PROVIDERS: Visit Provider Radiology Diagnostic Radiology | DX: K80.20 Calculus of gallbladder without cholecystitis without obstruction (principal) | CPT/HCPCS: 74177; 76705 ==